=== PATIENT | male | born 2000 | race Hispanic/Latino ===

== ENCOUNTER → 2022-03-16 | Day surgery (SDC) | payer BC ==
[~2022-03-16] MED LIST: FENTANYL CITRATE/PF 100MCG/2 ML INJ ONE; LIDOCAINE HCL 2% LOCAL INJ 5 ML SDV VIAL INJ ONE; PROPOFOL IV EMULSION 10 MG/ML 20 ML VIAL ONE
[2022-03-16 17:10] VITALS: BP 116/74
== END | disposition home or self-care (01) ==
LOC: OR 13:00
PROVIDERS: ATTEND Internal Medicine Gastroenterology
DX: K51.90 Ulcerative colitis, unspecified, without complications (principal); K62.1 Rectal polyp; Z71.3 Dietary counseling and surveillance; Z68.36 Body mass index [BMI] 36.0-36.9, adult
CPT/HCPCS: 36415; 45380; 83993; 85651; 86140; J2001; J2704; J3010; 45378